=== PATIENT | female | born 1980 | race Caucasian/White ===

== ENCOUNTER 2018-12-24 15:16 | Emergency (ER) | payer OTHER ==
[~2018-12-24] VITALS: Ht 157.5 cm; Wt 80.0 kg
[2018-12-24 15:35] VITALS: BP 123/72
[2018-12-24 15:59] LABS: BASOPHILS # (AUTO) 0.03 x10^3/uL (0-0.1); BASOPHILS % (AUTO) 0 % (0-1); EOSINOPHILS # (AUTO) 0.13 x10^3/uL (0-0.4); EOSINOPHILS % (AUTO) 1 % (1-7); LYMPHOCYTES # (AUTO) 1.72 x10^3/uL (1-3.4); LYMPHOCYTES % (AUTO) 17 % (22-44); MD NO; MEAN CORPUSCULAR HEMOGLOBIN 28.2 pg (27.0-34.8); MEAN CORPUSCULAR HGB CONC 33.7 g/dL (32.4-35.8); MEAN CORPUSCULAR VOLUME 83.8 fL (80-100); MEAN PLATELET VOLUME 9.3 fL (7.4-10.4); MONOCYTES # (AUTO) 0.57 x10^3/uL (0.2-0.8); MONOCYTES % (AUTO) 6 % (2-9); NEUTROPHILS # (AUTO) 7.83 x10^3/uL (1.8-6.8); NEUTROPHILS % (AUTO) 76 % (42-75); PLATELET COUNT 223 x10^3/uL (130-400); RED CELL DISTRIBUTION WIDTH 15.4 % (9.6-15.2)
--- NOTE | 2018-12-24 16:09 | NUR ---
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
--- NOTE | 2018-12-24 17:27 | NUR ---
Late note: Pt reports VB starting this am, approx 11 weeks preg. , denies any abd pain. States she notices blood after wiping, but denies any gushing or going through pads today. Pt given gown and encouraged to change for MD assessment, pt refused to put on gown after many attempts by RN.
[2018-12-24 17:43] LABS: MICROSCOPIC INDICATED
[2018-12-24 18:18] LABS: CULTURE INDICATED? YES
== END 2018-12-24 17:42 | disposition home or self-care (01) ==
LOC: ED 16:40
DX: O36.4XX0 Maternal care for intrauterine death, not applicable or unspecified (principal); Z3A.11 11 weeks gestation of pregnancy
CPT/HCPCS: 36415; 76801; 81001; 84702; 85025; 86901; 87086; 99284

== ENCOUNTER 2018-12-26 05:11 | Emergency (ER) | payer OTHER ==
[~2018-12-26] VITALS: Ht 160 cm; Wt 79.5 kg
--- NOTE | 2018-12-26 05:26 | NUR ---
PT HERE FOR VB. PT WAS SEEN HER 12/24 FOR SAME. PT IS TEARFUL AND COMPLAINING OF PAIN. VSMatthew. TO SEE PT. CALL LIGHT IN REACH
[2018-12-26] MEDS ORDERED: ONDANSETRON 2MG/ML, 2ML ONE (05:53)
[2018-12-26] MEDS ORDERED: MORPHINE SULFATE 4 MG/ML, 1ML ONE ×2 (05:54→08:03)
[2018-12-26] MEDS: MORPHINE SULFATE 4 MG/ML, 1ML IVPush PRN ×2 (05:57→08:11)
[2018-12-26 06:00] LABS: BASOPHILS # (AUTO) 0.02 x10^3/uL (0-0.1); BASOPHILS % (AUTO) 0 % (0-1); EOSINOPHILS # (AUTO) 0.02 x10^3/uL (0-0.4); EOSINOPHILS % (AUTO) 0 % (1-7); LYMPHOCYTES # (AUTO) 1.15 x10^3/uL (1-3.4); LYMPHOCYTES % (AUTO) 9 % (22-44); MD NO; MEAN CORPUSCULAR HEMOGLOBIN 28.3 pg (27.0-34.8); MEAN CORPUSCULAR HGB CONC 33.8 g/dL (32.4-35.8); MEAN CORPUSCULAR VOLUME 83.7 fL (80-100); MEAN PLATELET VOLUME 9.6 fL (7.4-10.4); MONOCYTES # (AUTO) 0.37 x10^3/uL (0.2-0.8); MONOCYTES % (AUTO) 3 % (2-9); NEUTROPHILS # (AUTO) 10.93 x10^3/uL (1.8-6.8); NEUTROPHILS % (AUTO) 88 % (42-75); PLATELET COUNT 222 x10^3/uL (130-400); RED BLOOD COUNT 4.68 x10^6/uL (3.82-5.3); RED CELL DISTRIBUTION WIDTH 15.1 % (9.6-15.2)
[2018-12-26] MEDS ORDERED: SODIUM CHLORIDE FLUSH 10ML SYR IVF ONE (06:00)
[2018-12-26] MEDS ORDERED: ONDANSETRON 2MG/ML, 2ML IVPush ONE (06:00)
--- NOTE | 2018-12-26 06:05 | NUR ---
MD AT BEDSIDE FOR PELVIC EXAM. PT MEDICATED FOR PAIN. VSS. CALL LIGHT IN REACH
[2018-12-26 06:09] LABS: ALBUMIN 3.1 g/dL (3.4-5.0); ANION GAP 8 mmol/L (5-15); CALCIUM 8.9 mg/dL (8.5-10.1); CHLORIDE 109 mmol/L (98-107)
--- NOTE | 2018-12-26 06:30 | NUR ---
PT TO US
--- NOTE | 2018-12-26 06:48 | NUR ---
Report from Sue RIVERA. Pt in US at this time.
--- NOTE | 2018-12-26 07:29 | NUR ---
Pt back from US, resting in bed, NADN, denies needs.
--- NOTE | 2018-12-26 08:10 | NUR ---
Pt medicated for low abd pain 06/22 per NOV. Pt tearful. Verbal reassurance provided. Pt assisted to turn onto her side per request. Pt denies other needs. Pt's significant other at bedside, supportive.
--- NOTE | 2018-12-26 08:42 | NUR ---
Pt states pain improved after medications. Pt ambulatory to bathroom with steady gait. Pt provided with fresh gown as well as underwear and pad.
--- NOTE | 2018-12-26 08:54 | NUR ---
Pt back to bed, positioned for comfort. Pt reports feeling light headed while in bathroom.
[2018-12-26 09:21] VITALS: BP 97/40
== END 2018-12-26 09:24 | disposition home or self-care (01) ==
LOC: ED 06:27
DX: O03.9 Complete or unspecified spontaneous abortion without complication (principal)
CPT/HCPCS: 36415; 76801; 80048; 82040; 84702; 85025; 96374; 96375; 96376; 99284; J2405